=== PATIENT | female | born 1995 | race Caucasian/White ===

== ENCOUNTER 2017-12-16 18:24 | Emergency (ER) | payer BC ==
[2017-12-16] MEDS ORDERED: predniSONE 20 MG Tab PO ONE (19:17)
--- NOTE | 2017-12-16 19:30 | EDM.PDOC ---
ED HPI GENERAL MEDICAL PROBLEM - General Chief Complaint: General Stated Complaint: EXTREME JOINT PAIN/GOUT?? Time Seen by Provider: 12/16/17 19:05 Source of Information: Reports: Patient History Limitations: Reports: No Limitations - History of Present Illness INITIAL COMMENTS - FREE TEXT/NARRATIVE: 22 yo female is on a temporary work assignment locally from [place]. She was seen in the clinic earlier today for polyarthritis. Routine labs CBC and BMP were WNL's and a tick panel was ordered. She was placed on doxycycline and ibuprofen. She returns now concerned that her MT joints of both feet are extremely painful and she states she has a family hx of gout. She thinks she should have had a uric acid level drawn. Wants to work, does not want a note to be off work. Treatments 3D MODELER: Reports: NSAIDS, Other Medication(s), Other (see below) Other Treatments 3D MODELER: Augmentin Right & Left Great Toe Pain Score (Numeric/FACES): 6 - Related Data Allergies Allergy/AdvReac Type Severity Reaction Status Date / Time No Known Allergies Allergy Verified 12/16/17 19:17 Home Meds: Home Meds Doxycycline [Doxycycline Hyclate] 100 mg PO BID 12/16/17 [History] Phentermine HCl 30 mg PO ACBREAKFAST 12/16/17 [History] Pseudoephedrine HCl 30 mg PO ASDIRECTED 12/16/17 [History] ED ROS GENERAL - Review of Systems Review Of Systems: See Below Constitutional: Reports: No Symptoms HEENT: Reports: No Symptoms Respiratory: Reports: No Symptoms Cardiovascular: Reports: No Symptoms Endocrine: Reports: No Symptoms GI/Abdominal: Reports: No Symptoms : Reports: No Symptoms Musculoskeletal: Reports: Joint Pain (multiple joints, sofya MT's of great toes bilat.) Skin: Reports: No Symptoms Neurological: Reports: No Symptoms ED EXAM, GENERAL - Physical Exam Exam: See Below Exam Limited By: No Limitations General Appearance: Alert, WD/WN, No Apparent Distress, Obese Eye Exam: Bilateral Eye: Normal Inspection Ears: Normal External Exam, Normal Canal, Hearing Grossly Normal Ear Exam: Bilateral Ear: Auricle Normal, Canal Normal Nose: Normal Inspection, Normal Mucosa, No Blood Throat/Mouth: Normal Lips, Normal Voice, No Airway Compromise Head: Atraumatic, Normocephalic Neck: Normal Inspection Respiratory/Chest: No Respiratory Distress, Lungs Clear, No Accessory Muscle Use Cardiovascular: Regular Rate, Rhythm Extremities: Redness (Of both great toe MT joints with tenderness on light touch ) Neurological: Alert, Oriented, CN II-XII Intact, Normal Cognition, No Motor/ Sensory Deficits Psychiatric: Normal Affect, Normal Mood Skin Exam: Warm, Dry, Intact, Normal Color, No Rash Course - Vital Signs Last Recorded V/S: Last Vital Signs Temp 36.8 C 12/16/17 19:02 Pulse 111 H 12/16/17 19:02 Resp 16 12/16/17 19:02 BP 150/98 H 12/16/17 19:02 Pulse Ox 98 12/16/17 19:02 Departure - Departure Time of Disposition: 19:31 Disposition: Home, Self-Care 01 Condition: Fair Clinical Impression: Polyarthritis - Discharge Information Referrals: PCP,None [Primary Care Provider] -
[2017-12-19 13:11] LABS: ANA DIRECT Negative (Negative)
== END 2017-12-16 19:48 | disposition home or self-care (01) ==
LOC: JP.ED 18:24
DX: M13.0 Polyarthritis, unspecified (principal); Z79.899 Other long term (current) drug therapy
CPT/HCPCS: 86431; 99284; A9270; 86038

== ENCOUNTER 2020-04-15 16:02 | Emergency (ER) | payer SELFPAY ==
[~2020-04-15 16:02] MED LIST: EPINEPHrine 1 MG/ML SDV IV ONE
[2020-04-15] MEDS ORDERED: EPINEPHrine 1 MG/ML SDV IM ONE (16:05)
[2020-04-15] MEDS ORDERED: methylPREDNISolone Sodium Succinate 125 MG/2 ML SDV IVPUSH ONE (16:05)
[2020-04-15] MEDS ORDERED: diphenhydrAMINE 50 MG/ML SDV IVPUSH ONE (16:05)
[2020-04-15] MEDS ORDERED: Albuterol/Ipratropium 3.0-0.5 MG/3 ML Neb Soln INH ONE (16:12)
[2020-04-15] MEDS ORDERED: EPINEPHrine 1:10,000 1 MG/10 ML Syringe IV ONE ×2 (16:15→16:30)
[2020-04-15] MEDS ORDERED: Famotidine 20 MG/2 ML SDV IV ONE (16:21)
[2020-04-15] MEDS ORDERED: LORazepam 2 MG/ML SDV IV ONE (16:29)
[2020-04-15] MEDS ORDERED: Propofol 200 MG/20 ML SDV IV ONE ×4 (16:30→16:55)
[2020-04-15] MEDS ORDERED: Succinylcholine 200 MG/10 ML MDV IV ONE (16:30)
[2020-04-15] MEDS ORDERED: Albuterol 0.083% 2.5 MG/3 ML Neb Soln INH ONE ×3 (16:40→18:00)
[2020-04-15] MEDS ORDERED: Sodium Chloride 0.9% Inhalation Soln 3 ML Neb INH ONE (16:43)
[2020-04-15] MEDS ORDERED: Racepinephrine 2.25% 0.5 ML Neb Soln INH ONE (16:43)
[2020-04-15] MEDS ORDERED: Budesonide 0.5 MG/2 ML Neb Susp INH ONE (16:46)
[2020-04-15] MEDS ORDERED: Heparin Sodium 5,000 UNITS in Sodium Chloride 0.9% 500 ML IV SCH (17:30)
[2020-04-15] MEDS ORDERED: Norepinephrine 4 MG in Dextrose 5% in Water 246 ML IV SCH ×2 (17:30)
--- NOTE | 2020-04-15 17:41 | CRLCR ---
INDICATION: Intubation TECHNIQUE: Chest 1 view. COMPARISON: None FINDINGS: Cardiovascular and mediastinum: Heart size and vasculature are normal in caliber and appearance. Mediastinum is within normal limits. Lungs and pleural space: ETT in place the tip 3.5 centimeters from the darby. Lungs are clear. No sign of infiltrate or mass. No sign of pleural effusion. No pneumothorax. Bones and soft tissues: No significant findings. IMPRESSION: ET tube in place with the tip 3.5 centimeters from the darby. Dictated by Star Chavez MD @ 04/15/2020 5:41:06 PM Dictated by: Star Chavez MD @ 04/15/2020 17:41:09 (Electronically Signed)
[2020-04-15] MEDS ORDERED: Rocuronium 50 MG/5 ML Vial IVPUSH ONE (17:45)
[2020-04-15] MEDS ORDERED: propofoL 100 ML IV SCH (18:00)
--- NOTE | 2020-04-15 18:16 | EDM.PDOC ---
ED HPI GENERAL MEDICAL PROBLEM - General Chief Complaint: Allergic Reaction Stated Complaint: ALLERGIC REACTION Time Seen by Provider: 04/15/20 17:05 Source of Information: Reports: RN Notes Reviewed History Limitations: Reports: Respiratory Distress - History of Present Illness INITIAL COMMENTS - FREE TEXT/NARRATIVE: 25-year-old female presents emergency department today in anaphylactic reaction, she was being evaluated in clinic for urinary tract symptomology was given 1 dose of Rocephin IM immediately following the dose of Rocephin started complaining of shortness of breath with color change in her skin. She does have a history of asthma. By the time she arrived to the emergency department she was in development of an anaphylactic reaction with respiratory arrest. At the time I arrived at the patient's bedside she was bright red in color no respiratory effort jaw was clamped no palpable pulse, CODE BLUE was initiated compressions (approximately 30 seconds )started oral airway placed bag mask ventilation initiated was extremely difficult, 0.5 mg epinephrine IM given through her close, please see code sheet for complete details on medications given and procedures performed during the code. The treatments of epinephrine Solu-Medrol Benadryl Pepcid did provide some improvement allowed us to obtain a blood pressure a pulse with ventilation however she had a respiratory rate in the 40s she would talk in 1-2 word sentences. Because of her stability elected to proceed with intubation please see anesthesia notes for details elected to place on a propofol drip following intubation she became hypotensive norepinephrine was initiated decision at that time to initiate air care. Consulted with Dr. Chaidez clinical review nurse critical care at [facility] recommended permissive hypercapnia ventilation rate of 8 - Related Data Allergies Allergy/AdvReac Type Severity Reaction Status Date / Time ceftriaxone [From Rocephin] Allergy Severe Anaphylactic Verified 04/15/20 17:47 Shock Home Meds: Home Meds Phentermine HCl 30 mg PO ACBREAKFAST 12/16/17 [History] Pseudoephedrine HCl 30 mg PO ASDIRECTED 12/16/17 [History] Past Medical History Respiratory History: Reports: Asthma Musculoskeletal History: Reports: Other (See Below) Other Musculoskeletal History: I & D on calf Endocrine/Metabolic History: Reports: Obesity/BMI 30+ - Infectious Disease History Infectious Disease History: Reports: Chicken Pox - Past Surgical History HEENT Surgical History: Reports: Tonsillectomy Social & Family History - Tobacco Use Smoking Status *Q: Unknown Ever Smoked - Caffeine Use Caffeine Use: Reports: Soda ED ROS GENERAL - Review of Systems Review Of Systems: Unable To Obtain Reason Not Obtained: Respiratory failure ED EXAM, CPR - Physical Exam Exam: See Below Text/Narrative:: On initial exam no air movement skin color red and blue no palpable pulse I could not auscultate any heart sounds. After initial treatment during the code pulse became palpable tachycardic rhythm air movement increased however wheezing on the expiratory phase throughout all lung devine Course - Vital Signs Last Recorded V/S: Last Vital Signs Temp 97.9 F 04/15/20 17:45 Pulse 91 04/15/20 17:45 Resp 32 H 04/15/20 17:45 BP 81/45 L 04/15/20 17:45 Pulse Ox 82 L 04/15/20 17:45 - Orders/Labs/Meds Orders: Active Orders 24 hr Category Date Time Status Heparin Sodium 5,000 units Med 04/15/20 17:30 Active Sodium Chloride 0.9% [Normal Saline] 500 ml IV ASDIRECTED Norepinephrine [Levophed] 4 mg Med 04/15/20 17:30 Active Dextrose 5% in Water 246 ml IV TITRATE propofoL [Diprivan 100 ML] 100 ml Med 04/15/20 18:00 Active IV TITRATE Medication Orders Heparin Sodium (Porcine) 5,000 (units/ Sodium Chloride) 501 mls @ 0 mls/hr IV ASDIRECTED SHIRA Norepinephrine Bitartrate 4 mg (/ Dextrose/Water) 250 mls @ 7.5 mls/hr IV TITRATE SHIRA; Protocol Propofol (Diprivan 100 Ml) 100 mls @ 3.6 mls/hr IV TITRATE SHIRA; Protocol Labs: Laboratory Tests 04/15/20 04/15/20 04/15/20 Range/Units 17:05 17:05 17:05 WBC 8.0 (4.5-11.0) K/uL RBC 6.23 H (3.30-5.50) M/uL Hgb 19.4 H* (12.0-15.0) g/dL Hct 57.9 H (36.0-48.0) % MCV 93 (80-98) fL MCH 31 (27-31) pg MCHC 34 (32-36) % Plt Count 336 (150-400) K/uL Neut % (Auto) 22 L (36-66) % Lymph % (Auto) 74 H (24-44) % [place] % (Auto) 3 (2-6) % Eos % (Auto) 1 L (2-4) % Baso % (Auto) 0 (0-1) % Puncture Site Rt brachial ABG pH 7.079 L* (7.350-7.450) ABG pCO2 67.4 H (35.0-42.0) mmHg ABG pO2 120.0 H (75.0-100.0) mmHg ABG HCO3 19.0 L (22.0-26.0) mmol/L ABG Total CO2 18.0 L (21.0-25.0) mmol/L ABG O2 Saturation 95.8 (95.0-98.0) % ABG O2 Content 21.3 (15.0-23.0) %vol ABG Base Excess -12.9 mm/L ABG Hemoglobin 16.3 H (12.0-16.0) g/dL ABG Oxyhemoglobin 92.7 % ABG Carboxyhemoglobin 1.8 H (0.0-1.6) % ABG Methemoglobin 1.4 % Kin Test Not performed O2 Delivery Device Resuscitation bag Sodium 142 (140-148) mmol/L Potassium 3.9 (3.6-5.2) mmol/L Chloride 104 (100-108) mmol/L Carbon Dioxide 22 (21-32) mmol/L Anion Gap 16.3 H (5.0-14.0) mmol/L BUN 11 (7-18) mg/dL Creatinine 1.0 (0.6-1.0) mg/dL Est Cr Clr Drug Dosing TNP Estimated GFR (MDRD) > 60 (>60) Glucose 164 H (74-106) mg/dL Calcium 9.5 (8.5-10.1) mg/dL Total Bilirubin 0.4 (0.2-1.0) mg/dL AST 20 (15-37) U/L ALT 41 (12-78) U/L Alkaline Phosphatase 53 (46-116) U/L Total Protein 7.5 (6.4-8.2) g/dL Albumin 4.1 (3.4-5.0) g/dL Globulin 3.4 (2.3-3.5) g/dL Albumin/Globulin Ratio 1.2 (1.2-2.2) SARS-CoV-2 RNA (DAMION) (NEGATIVE) 04/15/20 04/15/20 Range/Units 17:05 17:42 WBC (4.5-11.0) K/uL RBC (3.30-5.50) M/uL Hgb (12.0-15.0) g/dL Hct (36.0-48.0) % MCV (80-98) fL MCH (27-31) pg MCHC (32-36) % Plt Count (150-400) K/uL Neut % (Auto) (36-66) % Lymph % (Auto) (24-44) % [place] % (Auto) (2-6) % Eos % (Auto) (2-4) % Baso % (Auto) (0-1) % Puncture Site A-line ABG pH 7.177 L* (7.350-7.450) ABG pCO2 53.1 H (35.0-42.0) mmHg ABG pO2 440.0 H (75.0-100.0) mmHg ABG HCO3 18.9 L (22.0-26.0) mmol/L ABG Total CO2 17.5 L (21.0-25.0) mmol/L ABG O2 Saturation 99.3 H (95.0-98.0) % ABG O2 Content 21.3 (15.0-23.0) %vol ABG Base Excess -9.8 mm/L ABG Hemoglobin 14.8 (12.0-16.0) g/dL ABG Oxyhemoglobin 97.0 % ABG Carboxyhemoglobin 1.1 (0.0-1.6) % ABG Methemoglobin 1.2 % Kin Test Not performed O2 Delivery Device Resuscitation bag Sodium (140-148) mmol/L Potassium (3.6-5.2) mmol/L Chloride (100-108) mmol/L Carbon Dioxide (21-32) mmol/L Anion Gap (5.0-14.0) mmol/L BUN (7-18) mg/dL Creatinine (0.6-1.0) mg/dL Est Cr Clr Drug Dosing Estimated GFR (MDRD) (>60) Glucose (74-106) mg/dL Calcium (8.5-10.1) mg/dL Total Bilirubin (0.2-1.0) mg/dL AST (15-37) U/L ALT (12-78) U/L Alkaline Phosphatase (46-116) U/L Total Protein (6.4-8.2) g/dL Albumin (3.4-5.0) g/dL Globulin (2.3-3.5) g/dL Albumin/Globulin Ratio (1.2-2.2) SARS-CoV-2 RNA (DAMION) Negative (NEGATIVE) Meds: Medications Generic Name Dose Route Start Last Admin Trade Name Freq PRN Reason Stop Dose Admin Heparin Sodium (Porcine) 5,000 501 mls @ 0 mls/hr 04/15/20 17:30 units/ Sodium Chloride IV ASDIRECTED SHIRA Norepinephrine Bitartrate 4 mg 250 mls @ 7.5 mls/hr 04/15/20 17:30 / Dextrose/Water IV TITRATE SHIRA Protocol 2 MCG/MIN Propofol 100 mls @ 3.6 mls/hr 04/15/20 18:00 Diprivan 100 Ml IV TITRATE SHIRA Protocol 5 MCG/KG/MIN Discontinued Medications Generic Name Dose Route Start Last Admin Trade Name Freq PRN Reason Stop Dose Admin Albuterol 2.5 mg 04/15/20 16:40 Proventil Neb Soln INH 04/15/20 16:41 ONETIME ONE Albuterol 2.5 mg 04/15/20 16:46 Proventil Neb Soln INH 04/15/20 16:47 ONETIME ONE Albuterol 7.5 mg 04/15/20 18:00 Proventil Neb Soln INH 04/15/20 18:01 ONETIME ONE Albuterol/Ipratropium 3 ml 04/15/20 16:12 Duoneb 3.0-0.5 Mg/3 Ml INH 04/15/20 16:13 ONETIME ONE Budesonide 0.5 mg 04/15/20 16:46 Pulmicort INH 04/15/20 16:47 ONETIME ONE Diphenhydramine HCl 50 mg 04/15/20 16:05 Benadryl IVPUSH 04/15/20 16:06 ONETIME ONE Epinephrine HCl 0.5 mg 04/15/20 16:05 Adrenalin IM 04/15/20 16:06 ONETIME ONE Epinephrine HCl 1 mg 04/15/20 16:15 Epinephrine 1:10,000 IV 04/15/20 16:16 ONETIME ONE Epinephrine HCl 1 mg 04/15/20 16:30 Epinephrine 1:10,000 IV 04/15/20 16:31 ONETIME ONE Epinephrine HCl 0.5 mg 04/15/20 16:00 Adrenalin IV 04/15/20 16:01 ONETIME ONE Famotidine 20 mg 04/15/20 16:21 Pepcid IV 04/15/20 16:22 ONETIME ONE Lorazepam 0.5 mg 04/15/20 16:29 Ativan IV 04/15/20 16:30 ONETIME ONE Methylprednisolone Sodium Succinate 125 mg 04/15/20 16:05 Solu-Medrol IVPUSH 04/15/20 16:06 ONETIME ONE Propofol 200 mg 04/15/20 16:30 Diprivan 20 Ml IV 04/15/20 16:31 ONETIME ONE Propofol 100 mg 04/15/20 16:36 Diprivan 20 Ml IV 04/15/20 16:37 ONETIME ONE Propofol 100 mg 04/15/20 16:45 Diprivan 20 Ml IV 04/15/20 16:46 ONETIME ONE Propofol 100 mg 04/15/20 16:55 Diprivan 20 Ml IV 04/15/20 16:56 ONETIME ONE Racepinephrine 0.5 ml 04/15/20 16:43 S-2 2.25% INH 04/15/20 16:44 ONETIME ONE Rocuronium [place] 30 mg 04/15/20 17:45 Zemuron IVPUSH 04/15/20 17:46 ONETIME ONE Sodium Chloride 3 ml 04/15/20 16:43 Sodium Chloride 0.9% INH 04/15/20 16:44 ONETIME ONE Succinylcholine Chloride 100 mg 04/15/20 16:30 Quelicin IV 04/15/20 16:31 ONETIME ONE Departure - Departure Time of Disposition: 18:21 Disposition: DC/Tfer to Acute Hospital 02 Condition: Fair Clinical Impression: Anaphylactic reaction Qualifiers: Encounter type: initial encounter Qualified Code(s): T78.2XXA - Anaphylactic shock, unspecified, initial encounter - Discharge Information Instructions: Anaphylactic Reaction, Adult Referrals: PCP,None [Primary Care Provider] - Critical Care Note - Critical Care Note Total Time (mins): 60 Sepsis Event Note (ED) - Evaluation Sepsis Screening Result: Possible Severe Sepsis Risk - Focused Exam Vital Signs: Vital Signs Temp Temp Pulse Resp BP Pulse Ox 04/15/20 17:45 97.9 F 91 32 H 81/45 L 82 L 04/15/20 17:43 97.9 F 04/15/20 16:28 91 81/45 L 82 L 04/15/20 16:23 67 32 H 111/85 91 L 04/15/20 16:15 70 66/52 L 04/15/20 16:10 111 H 29 H 123/82 - My Orders Last 24 Hours: My Active Orders 04/15/20 17:30 Heparin Sodium 5,000 units Sodium Chloride 0.9% [Normal Saline] 500 ml IV ASDIRECTED 04/15/20 18:00 propofoL [Diprivan 100 ML] 100 ml IV TITRATE - Assessment/Plan Last 24 Hours: My Active Orders 04/15/20 17:30 Heparin Sodium 5,000 units Sodium Chloride 0.9% [Normal Saline] 500 ml IV ASDIRECTED 04/15/20 18:00 propofoL [Diprivan 100 ML] 100 ml IV TITRATE Plan: Assessment Acuity = acute Site and laterality = anaphylaxis with respiratory failure Etiology = secondary to Rocephin Manifestations = hypoxic, requiring intubation Location of injury = Home Lab values = hemoglobin 19.4 Artline ABG reveals pH 7.177 PCO2 of 53.1 PCO2 of 440 bicarb of 18.9 CMP unremarkable COVID was negative chest x-ray reveals ET tube proximately 3 cm above the darby Plan Called and discussed case with Dr. Jha pulmonary critical care [facility] [id number] kindly accepted the patient in transport will be transported via air care This note was dictated using [employer] voice recognition software please call with any questions on syntax or grammar.
--- NOTE | 2020-04-15 19:08 | ANES ---
DATE OF SERVICE: 04/15/2020 CONSULTED BY: Emergency room. Rg is a 25-year-old female patient. Upon arrival, I found the anaphylactic cardiac arrest and continuing at this point. She was just becoming arousable and a pulse was back after multiple doses of epinephrine and previous medications prior to my arrival. We decided to manage her airway endotracheally with Dr. Olsen Officer and Dr. Jaun Navarro and myself discussing. Induced her with 200 mg of propofol, 5 mg of Zemuron and 120 mg of succinylcholine. I was easily able to place #3 Margi and visualize vocal cords. I placed a #7 endotracheal tube to 22 at the lip. The tube was then secured. She had bilateral breath sounds although minimal, severe wheezing noted with ventilation and positive end-tidal CO2. At that point. I placed liquid albuterol down the endotracheal tube and proceeded with some positive pressure ventilation. She did have definite restriction that seemed to ease. I then proceeded to continue to secure the endotracheal tube. I then inserted an 18 in site to her right antecubital vein after an alcohol swab, catheter was then secured. I moved to maintain propofol management and began an arterial line in her left radial artery. At the time of placement, her blood pressure was 67 systolic, I had good blood return. #22 catheter was placed after sterile prep. Sterile gloves were used and #2 suture was placed with a Nino needle to secure that left radial art line to the left radial skin area. Tegaderm was placed over as well as tape. Upon completion of all of the above, her blood pressure was within the normal range of 90s to 100s systolic, heart rate 107, saturation of 90% to 94%, and continued end-tidal CO2 reading. I reported off to Dr. Navarro, and at that point, he dismissed me from the code proceedings. Jaun Dumont CRNA /[id number]
--- NOTE | 2020-04-15 19:58 | PCM.CONS ---
H&P History of Present Illness - General Date of Service: 04/15/20 Source of Information: Provider, RN Notes Reviewed History Limitations: Reports: Altered Mental Status, Respiratory Distress, Other (Anaphylactic shock) - History of Present Illness Initial Comments - Free Text/Narative: Ms. Masterson is a 25-year-old woman brought into the emergency department from the clinic. I responded to a CODE BLUE and was asked to assist in management by . Officer. Ms. Masterson had been seen in the clinic this afternoon for evaluation of vaginal discharge. She has a history of recent gonococcal infection and despite treatment had had ongoing discharge. She was seen and evaluated in the clinic and felt to have developing PID. She was given 1 g of IM ceftriaxone with the plan to then take 2 weeks of doxycycline. Information from the clinic is limited. Apparently shortly after receiving IM ceftriaxone patient began to experience shortness of breath and diffuse erythema. She was emergently brought to the hospital emergency department. She does have a known history of asthma, no known history of previous cephalosporin or ceftriaxone allergy. Most immediately on arriving in the emergency department she developed full respiratory arrest with no spontaneous breathing or palpable heart rate. She received 2 doses of IM epinephrine and then a third dose that was given intraosseously. She was also given Solu-Medrol, Benadryl, IV Pepcid. She did receive 2 further doses of IV epinephrine. With these interventions she did develop adequate blood pressure with sinus tachycardia but continued to have ongoing respiratory compromise with increased respiratory rates and hypoxia. Anesthesia was present and decision was made to proceed with intubation. She was intubated successfully and received nebulized albuterol, followed by nebulized racemic epinephrine, followed by continuous albuterol nebulizer. After intubation she did develop hypotension and was transiently started on norepinephrine IV. This did result in improvement in blood pressure and after relatively short period of time the IV norepinephrine was discontinued. Decision was made to transfer patient to tertiary care [facility] at [facility] in [facility]. Discussion was held with the wreath machine tender Dr. Chaidez recommended a strategy of permissive hypercapnia, with a relatively slow respiratory rate and pressure on the chest during expiration to help manage possible auto PEEP. - Related Data Allergies/Adverse Reactions: Allergies Allergy/AdvReac Type Severity Reaction Status Date / Time ceftriaxone [From Rocephin] Allergy Severe Anaphylactic Verified 04/15/20 17:47 Shock Home Medications: Home Meds Phentermine HCl 30 mg PO ACBREAKFAST 12/16/17 [History] Pseudoephedrine HCl 30 mg PO ASDIRECTED 12/16/17 [History] Past Medical History Respiratory History: Reports: Asthma Musculoskeletal History: Reports: Other (See Below) Other Musculoskeletal History: I & D on calf Endocrine/Metabolic History: Reports: Obesity/BMI 30+ - Infectious Disease History Infectious Disease History: Reports: Chicken Pox - Past Surgical History HEENT Surgical History: Reports: Tonsillectomy Social & Family History - Tobacco Use Smoking Status *Q: Unknown Ever Smoked - Caffeine Use Caffeine Use: Reports: Soda H&P Review of Systems - Review of Systems: Review Of Systems: See Below General: Reports: ROS unobtainable (Patient intubated and sedated) Exam - Exam Exam: See Below - Vital Signs Vital Signs: Last Vital Signs Temp 97.9 F 04/15/20 17:45 Pulse 116 H 04/15/20 18:02 Resp 15 04/15/20 18:02 BP 168/96 H 04/15/20 18:02 Pulse Ox 81 L 04/15/20 18:02 Weight: 305 lb 5.443 oz - Exam Quality Assessment: Supplemental Oxygen (Intubation), Urinary Catheter General: Severe Distress, Sedated HEENT: Mucosa Moist & [place], Normal Nasal Septum, Posterior Pharynx Clear, Pupils Equal Neck: Supple, Trachea Midline, +2 Carotid Pulse wo Bruit Lungs: Decreased Breath Sounds, Wheezing, Other (Poor air movement and prolonged expiratory phase) Cardiovascular: Regular Rhythm, Normal S1, Normal S2, Tachycardia. No: Systolic Murmur, Diastolic Murmur GI/Abdominal Exam: Soft, Non-Tender, No Organomegaly, No Distention Skin: Other (Diffuse erythema) - Patient Data Lab Results Last 24 hrs: Laboratory Results - last 24 hr 04/15/20 04/15/20 04/15/20 Range/Units 17:05 17:05 17:05 WBC 8.0 (4.5-11.0) K/uL RBC 6.23 H (3.30-5.50) M/uL Hgb 19.4 H* (12.0-15.0) g/dL Hct 57.9 H (36.0-48.0) % MCV 93 (80-98) fL MCH 31 (27-31) pg MCHC 34 (32-36) % Plt Count 336 (150-400) K/uL Neut % (Auto) 22 L (36-66) % Lymph % (Auto) 74 H (24-44) % [place] % (Auto) 3 (2-6) % Eos % (Auto) 1 L (2-4) % Baso % (Auto) 0 (0-1) % Puncture Site Rt brachial ABG pH 7.079 L* (7.350-7.450) ABG pCO2 67.4 H (35.0-42.0) mmHg ABG pO2 120.0 H (75.0-100.0) mmHg ABG HCO3 19.0 L (22.0-26.0) mmol/L ABG Total CO2 18.0 L (21.0-25.0) mmol/L ABG O2 Saturation 95.8 (95.0-98.0) % ABG O2 Content 21.3 (15.0-23.0) %vol ABG Base Excess -12.9 mm/L ABG Hemoglobin 16.3 H (12.0-16.0) g/dL ABG Oxyhemoglobin 92.7 % ABG Carboxyhemoglobin 1.8 H (0.0-1.6) % ABG Methemoglobin 1.4 % Kin Test Not performed O2 Delivery Device Resuscitation bag Sodium 142 (140-148) mmol/L Potassium 3.9 (3.6-5.2) mmol/L Chloride 104 (100-108) mmol/L Carbon Dioxide 22 (21-32) mmol/L Anion Gap 16.3 H (5.0-14.0) mmol/L BUN 11 (7-18) mg/dL Creatinine 1.0 (0.6-1.0) mg/dL Est Cr Clr Drug Dosing TNP Estimated GFR (MDRD) > 60 (>60) Glucose 164 H (74-106) mg/dL Calcium 9.5 (8.5-10.1) mg/dL Total Bilirubin 0.4 (0.2-1.0) mg/dL AST 20 (15-37) U/L ALT 41 (12-78) U/L Alkaline Phosphatase 53 (46-116) U/L Total Protein 7.5 (6.4-8.2) g/dL Albumin 4.1 (3.4-5.0) g/dL Globulin 3.4 (2.3-3.5) g/dL Albumin/Globulin Ratio 1.2 (1.2-2.2) SARS-CoV-2 RNA (DAMION) (NEGATIVE) 04/15/20 04/15/20 Range/Units 17:05 17:42 WBC (4.5-11.0) K/uL RBC (3.30-5.50) M/uL Hgb (12.0-15.0) g/dL Hct (36.0-48.0) % MCV (80-98) fL MCH (27-31) pg MCHC (32-36) % Plt Count (150-400) K/uL Neut % (Auto) (36-66) % Lymph % (Auto) (24-44) % [place] % (Auto) (2-6) % Eos % (Auto) (2-4) % Baso % (Auto) (0-1) % Puncture Site A-line ABG pH 7.177 L* (7.350-7.450) ABG pCO2 53.1 H (35.0-42.0) mmHg ABG pO2 440.0 H (75.0-100.0) mmHg ABG HCO3 18.9 L (22.0-26.0) mmol/L ABG Total CO2 17.5 L (21.0-25.0) mmol/L ABG O2 Saturation 99.3 H (95.0-98.0) % ABG O2 Content 21.3 (15.0-23.0) %vol ABG Base Excess -9.8 mm/L ABG Hemoglobin 14.8 (12.0-16.0) g/dL ABG Oxyhemoglobin 97.0 % ABG Carboxyhemoglobin 1.1 (0.0-1.6) % ABG Methemoglobin 1.2 % Kin Test Not performed O2 Delivery Device Resuscitation bag Sodium (140-148) mmol/L Potassium (3.6-5.2) mmol/L Chloride (100-108) mmol/L Carbon Dioxide (21-32) mmol/L Anion Gap (5.0-14.0) mmol/L BUN (7-18) mg/dL Creatinine (0.6-1.0) mg/dL Est Cr Clr Drug Dosing Estimated GFR (MDRD) (>60) Glucose (74-106) mg/dL Calcium (8.5-10.1) mg/dL Total Bilirubin (0.2-1.0) mg/dL AST (15-37) U/L ALT (12-78) U/L Alkaline Phosphatase (46-116) U/L Total Protein (6.4-8.2) g/dL Albumin (3.4-5.0) g/dL Globulin (2.3-3.5) g/dL Albumin/Globulin Ratio (1.2-2.2) SARS-CoV-2 RNA (DAMION) Negative (NEGATIVE) Result Diagrams: 04/15/20 17:05 04/15/20 17:05 Sepsis Event Note - Evaluation Sepsis Screening Result: Possible Severe Sepsis Risk - Focused Exam Vital Signs: Vital Signs Temp Temp Pulse Resp BP Pulse Ox 04/15/20 18:02 116 H 15 168/96 H 81 L 04/15/20 17:55 123 H 7 L 178/32 H 83 L 04/15/20 17:45 97.9 F 124 H 8 L 184/92 H 86 L 04/15/20 17:43 97.9 F 04/15/20 16:28 91 81/45 L 82 L 04/15/20 16:23 67 32 H 111/85 91 L 04/15/20 16:15 70 66/52 L 04/15/20 16:10 111 H 29 H 123/82 *Q Meaningful Use (ADM) - VTE Risk Assess *Q Each Risk Factor Represents 1 Point: Obesity ( BMI > 25 kg/m2) Total Score 1 Point Risk Factors: 1 Each Risk Factor Represents 2 Points: None Total Score 2 Point Risk Factors: 0 Each Risk Factor Represents 3 Points: None Total Score 3 Point Risk Factors: 0 Each Risk Factor Represents 5 Points: None Total Score 5 Point Risk Factors: 0 Venous Thromboembolism Risk Factor Score *Q: 1 Consult PN Assessment/Plan Procedures: Procedures BLOOD TYPING SEROLOGIC ABO (04/02/19) BLOOD TYPING SEROLOGIC RH(D) (04/02/19) EMERGENCY DEPT VISIT (12/16/17) RBC ANTIBODY SCREEN (04/02/19) RHEUMATOID FACTOR QUANT (12/16/17) (1) Respiratory failure with hypoxia and hypercapnia SNOMED Code(s): 19019341 Code(s): J96.91 - RESPIRATORY FAILURE, UNSPECIFIED WITH HYPOXIA; J96.92 - RESPIRATORY FAILURE, UNSPECIFIED WITH HYPERCAPNIA (2) Status asthmaticus SNOMED Code(s): 536098012 Code(s): J45.902 - UNSPECIFIED ASTHMA WITH STATUS ASTHMATICUS (3) Asthma SNOMED Code(s): 711740516 Code(s): J45.909 - UNSPECIFIED ASTHMA, UNCOMPLICATED (4) Anaphylactic reaction SNOMED Code(s): 68860830 Code(s): T78.2XXA - ANAPHYLACTIC SHOCK, UNSPECIFIED, INITIAL ENCOUNTER Qualifiers: Encounter type: initial encounter Qualified Code(s): T78.2XXA - Anaphylactic shock, unspecified, initial encounter Problem List Initiated/Reviewed/Updated: Yes Plan: ASSESSMENT AND RECOMMENDATIONS ANAPHYLACTIC SHOCK-likely secondary to recent ceftriaxone injection. Severe reaction with cardiopulmonary arrest and status asthmaticus. Treated with several doses of epinephrine as well as Solu-Medrol, Benadryl, Pepcid, and nebulizer therapy. Requiring intubation and mechanical ventilation. Patient has been stabilized in the emergency department and will be transferred to tertiary [facility] for further management -Transfer to [facility] for further subspecialty evaluation and management -Norepinephrine as needed to maintain map of greater than 65 -Continue IV fluids -Ongoing therapy with IV steroids and histamine blockers STATUS ASTHMATICUS-resulting in hypoxic and hypercapnic respiratory failure, requiring intubation and mechanical ventilation. She does have a previous history of asthma -Continue intubation and mechanical ventilation on transfer -Ongoing nebulizer therapy as needed -Other management as above HYPOXIC AND HYPERCAPNIC RESPIRATORY FAILURE -As above 2.5 hours of critical care time were spent in the direct management of this patient in the emergency department. This included from the time the CODE ANISHA was called until the patient was transferred to tertiary [facility]. Requesting Provider: TO Date Consult Requested: 04/16/20 Reason for Consult: Anaphylactic shock, acute hypoxic respiratory failure Patient History Reviewed: Yes Notified Requestor: Yes
== END 2020-04-15 17:25 ==
LOC: JP.ED 16:02
DX: T78.2XXA Anaphylactic shock, unspecified, initial encounter (principal); J45.909 Unspecified asthma, uncomplicated; E66.9 Obesity, unspecified; Z68.42 Body mass index [BMI] 45.0-49.9, adult; Z88.1 Allergy status to other antibiotic agents; Z20.828 Contact with and (suspected) exposure to other viral communicable diseases
CPT/HCPCS: 31500; 36600; 36680; 51702; 71045; 80053; 82803; 85025; 87635; 92950; 94640; 96372; 96374; 96375; 96376; 99285; J0171; J1200; J2060; J2704; J2930; J3490; 99291; J7620-GY; U0002